=== PATIENT | female | born 1970 | race Caucasian/White ===

== ENCOUNTER → 2016-09-08 | Outpatient (CLI) | payer BC ==
--- NOTE | 2016-09-08 13:27 | US ---
Ultrasound Pelvis Complete (Transabdominal and Endovaginal) Including Duplex/Doppler Imaging History: Left ovarian 4.2 cm cyst. Follow-up. N 94.9 Comparison: MRI June 2016 Technique: Transabdominal and endovaginal ultrasound images were obtained. Endovaginal images obtain ed for better evaluation of the uterine myometrium and adnexa. Duplex/Doppler imaging of adnexa. Findings: Uterus measures 10 x 5 x 4 cm. Endometrial thickness is 9 mm. IUD appears in good position centrally within the endometrial canal. No definite uterine leiomyomata. Right ovary not visualized. Left ovary measures 2.6 x 2.1 x 2.1 cm. Left ovarian complex cyst measuri ng 2 x 1.8 x 1.6 cm as decrease in size previously measuring 4.4 x 3.6 cm. No significant free fluid in the pelvis. Color Doppler flow to both ovaries without torsion. Impression: 1. Interval decrease in size of left ovarian probably benign cyst measuring 2 x 1.8 x 1.6 cm, previou sly measuring 4.4 x 3.6 cm. 2. Right ovary not identified. 3. IUD appears in good position. 4. No ascites.
--- NOTE | 2016-09-10 16:48 | MA ---
Screening Digital Mammogram With iCAD Analysis Reason for Examination: Routine screening. Breast parenchymal density: Type B; Scattered fibroglandular densities. Technique: Four views of each breast are obtained including CC and oblique lateral Theron (implant di splaced) and non-Theron (implant not displaced) views. Images were reviewed using the iCAD computer a ided detection system. Comparison: August 2015.. Findings: Breast implants are in place bilaterally. iCAD is reviewed. No suspicious areas are identif ied. There has been no significant change in the appearance of either breast. Breast implants diminis h the sensitivity of mammography. Impression: Negative mammogram. BI-RADS 1. Recommendation: Routine screening is recommended in one year as long as physical examination is negat calixto. [facility] will send a result letter to the patient. Negative mammography should not preclude additional workup of a clinically suspicious finding. The patient's information is entered into a reminder system with a target due date for her next mammo gram.
== END ==
LOC: FIMAGING 11:30
PROVIDERS: ATTEND Internal Medicine
DX: Z12.31 Encounter for screening mammogram for malignant neoplasm of breast (principal); N83.202 Unspecified ovarian cyst, left side
CPT/HCPCS: G0202

== ENCOUNTER → 2017-04-13 | Outpatient (CLI) | payer BC | LOC: BMCIMAGING 14:50 | PROVIDERS: ATTEND Podiatrist Foot & Ankle Surgery | DX: M20.12 Hallux valgus (acquired), left foot (principal) ==

== ENCOUNTER → 2017-05-16 | Outpatient (CLI) | payer BC | LOC: BMCIMAGING 14:08 | PROVIDERS: ATTEND Podiatrist Foot & Ankle Surgery | DX: Z09 Encounter for follow-up examination after completed treatment for conditions other than malignant neoplasm (principal); Z98.890 Other specified postprocedural states ==

== ENCOUNTER → 2017-06-06 | Outpatient (CLI) | payer BC | LOC: BMCIMAGING 14:35 | PROVIDERS: ATTEND Podiatrist Foot & Ankle Surgery | DX: Z09 Encounter for follow-up examination after completed treatment for conditions other than malignant neoplasm (principal); Z98.890 Other specified postprocedural states ==

== ENCOUNTER → 2017-07-21 | Outpatient (CLI) | payer BC | LOC: BMCIMAGING 07:23 | PROVIDERS: ATTEND Allergy & Immunology Allergy | DX: R10.9 Unspecified abdominal pain (principal); R11.0 Nausea; R19.7 Diarrhea, unspecified; E66.9 Obesity, unspecified ==

== ENCOUNTER 2017-09-28 07:04 | Day surgery (SDC) | payer BC ==
[2017-09-28] MEDS ORDERED: NALOXONE HCL 0.4 MG/ML INJ IVP PRN (07:49)
[2017-09-28] MEDS ORDERED: ALTEPLASE 2 MG VIAL IVP PRN (07:49)
[2017-09-28] MEDS ORDERED: fentaNYL 100 MCG/2 ML INJ IVP PRN (07:49)
[2017-09-28] MEDS ORDERED: GLUCAGON HCL 1 MG VIAL IVP PRN (07:49)
[2017-09-28] MEDS ORDERED: MIDAZOLAM 2 MG/2 ML VIAL IVP PRN (07:49)
[2017-09-28] MEDS ORDERED: MEPERIDINE 25 MG/ML SYR IVP PRN (07:49)
[2017-09-28] MEDS ORDERED: HEPARIN 10,000 UNIT/10 ML MDV (1,000 UNIT/ML) IVP PRN (07:49)
[2017-09-28] MEDS ORDERED: FLUMAZENIL 0.5 MG/5 ML MDV IVP PRN (07:49)
[2017-09-28] MEDS ORDERED: PROTAMINE SULFATE 50 MG/5 ML VIAL IVP PRN (07:49)
[2017-09-28 07:53] VITALS: PULSE 68; RESP 18; TEMP 98.8
[2017-09-28] MEDS ORDERED: NS 1,000 ML IV SCH (08:00)
[2017-09-28] MEDS ORDERED: IOPAMIDOL (ISOVUE-300) 100 ML BTL ONE ×2 (08:20→10:07)
--- NOTE | 2017-09-28 08:56 | PDGENHP ---
History & Physical Chief Complaint: Severe left long and index finger pain History of Present Illness: 47 yo F w h/o HTN and anxiety p/w 2 wk h/o severe left long and index finger pain. No aggrevated or relieving factors. Has noticed mild swelling and dislocoration, ranging from white to purple. Has never happened before. Saw [employer] [employer] then hand surgeon, who referred her to angio. Also has healing cut on long finger, adjacent to nailbed, which she sustained several days after her symptoms began. Pertinent Past, Social, Family History: Works as [email or web address]. Otherwise, noncontributory. Relevant Physical Exam: Left long and index finger are mildly swollen, dark red/ purple in color, wo a clear demarcation between normal and abdnormal colloration. Both fingers are exquisitely TTP, to the point of eliciting tears. Index finger demonstrates brisk cap refill. The long finger is difficult to examine due to patients pain. Radial and DP pulses 2+ bilaterally. Cardiorespiratory Assessment: RRR. Normal resp effort.
--- NOTE | 2017-09-28 09:01 | PDPROPOC ---
Sedation Plan of Care Sedation Plan of Care: vital signs stable, mental status noted, patient educated of risks, benefits, alternatives, patient can tolerate sedation ASA Classification: ASA 2 Planned drugs: fentanyl, midazolam Mallampati Score: Class 1 Mallampati Reference Image: Patient passed 3-3-2 rule?: Yes
[2017-09-28] MEDS ORDERED: NITROGLYCERIN/D5W 50 MG/250 ML BOTTLE IV ONE (09:33)
--- NOTE | 2017-09-28 09:49 | PDRADPN ---
Radiology Procedure Note Date of Procedure: 09/28/17 Radiologist: Harmeet Barreto Anesthesia: IV Sedation Pre-op Diagnosis: Left long and index finger pain, discoloration Post-op Diagnosis: Same Indication: Left long and index finger pain, discoloration Procedure: LUE angiography Finding(s): See dictated report Inf/Abcess present in the surg proc area at time of surgery?: No Complications: No immediate
[2017-09-28] MEDS ORDERED: OXYCODONE/APAP 5/325 TAB PO PRN (09:53)
[2017-09-28 09:59] VITALS: BP 125/79; O2SAT 98
[2017-09-28] MEDS ORDERED: LIDOCAINE 1% 300 MG/30 ML SDV ONE (10:14)
== END 2017-09-29 13:17 | disposition home or self-care (01) ==
LOC: FIMAGING 07:04
PROVIDERS: ATTEND Radiology Diagnostic Radiology
DX: I77.1 Stricture of artery (principal); M79.642 Pain in left hand; S61.213A Laceration without foreign body of left middle finger without damage to nail, initial encounter; X58.XXXA Exposure to other specified factors, initial encounter; I10 Essential (primary) hypertension; F41.9 Anxiety disorder, unspecified
CPT/HCPCS: 36216; 75710; 99152; 99153; C1769; C1894; J1644; J2250; J2310; J3010; Q9967

== ENCOUNTER → 2017-12-16 | Outpatient (CLI) | payer BC | LOC: BMCIMAGING 14:37 | PROVIDERS: ATTEND Family Medicine | DX: M79.89 Other specified soft tissue disorders (principal) ==

== ENCOUNTER → 2018-06-12 | Outpatient (CLI) | payer BC | LOC: FIMAGING 09:06 | PROVIDERS: ATTEND Internal Medicine | DX: D25.9 Leiomyoma of uterus, unspecified (principal) ==

== ENCOUNTER → 2018-11-28 | Outpatient (CLI) | payer BC | LOC: FIMAGING 13:05 | PROVIDERS: ATTEND Internal Medicine | DX: Z12.31 Encounter for screening mammogram for malignant neoplasm of breast (principal) ==